=== PATIENT | male | born 1985 | race Caucasian/White ===

== ENCOUNTER → 2016-10-24 | Outpatient (CLI) | payer OTHER ==
--- NOTE | 2016-10-24 10:56 | NUR ---
Eval 2 Hr/Client presented for an eval as a referral from his dispatch officer.
--- NOTE | 2016-10-26 12:32 | CDE ---
ADMIT: 10/24/2016 RM/LOC: [facility] MR#: [id number] [address] [id number] DALIA ROSALES [address] [place] [address] Chemical Dependency Evaluation SEX: M AGE: 31 : 1985 A. DEMOGRAPHICS: NAME: Dalia Rosales DATE OF : 1985 EVALUATING COUNSELOR: Ike Styles MS, LMHP, LADC, CSAT DATE OF EVALUATION: 10/24/2016 B. PRESENTING PROBLEM/CHIEF COMPLAINT: This client is on parole as he was just released from [facility]. He had a couple of charges of intoxacation while he was in [facility] and a med abuse. He was referred here by his hydrological technical officer, Vibha Henderson. C. MEDICAL HISTORY: This client stated he has no medical issues at this time. 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 D. 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 He has been doing that for 3 weeks. He has no prior work history as he has spent the last 10 years in [facility]. EDUCATION: This client received his high school diploma from [employer]. He would like to learn to read and write better. : This client has never been in the . E. ALCOHOL/DRUG ASSESSMENT SUMMARY: ALCOHOL: This client first drank alcohol at age 19. He said he only drank 1 or 2 times. He would have 3-4 beers a month. He has not drank since 2006. He said the night he got arrested and received a manslaughter charge was he had drank a little bit more that night, but he did not know how much. MARIJUANA: Client stated he tried marijuana 1 time when he was 19, did not like it, has not used it since. COCAINE: No use reported. METHAMPHETAMINES: No use reported. HALLUCINOGENS: No use reported. HEROIN: No use reported. PRESCRIPTION DRUGS: No abuse reported. OTHER DRUGS (INHALANTS, OVER THE COUNTER, ETC): No abuse reported. NICOTINE: This client first smoked cigarettes at age 19. He said he smokes 2 or 3 cigarettes a day and has smoked today. The only negative consequences of his drinking are that he was charged for manslaughter and he ended up in [facility] because of that. He said if he had not been drinking, he did not know whether that would have happened or not. ADMIT: 10/24/2016 RM/LOC: [facility] MR#: [id number] [address] [address] DALIA ROSALES [address] [place] [address] Chemical Dependency Evaluation SEX: M AGE: 31 : 1985 F. LEGAL HISTORY: In 2006, this client was charged with manslaughter, spent 9-1/2 years in [facility]. He is currently involved with the parole system. G. FAMILY/SOCIAL/PEER HISTORY: This client was raised by his biological parents in [place]. He said he gets along good with his mom and his dad. He is still living at home. He has never been and is not in a relationship at this time. He denied having any serious family problems affecting his life at this time. SEXUAL HISTORY AND TRAUMA: This client stated he is heterosexual and he is comfortable with that orientation. He denied ever being the victim of sexual or physical abuse. He denied ever inflicting any aggressive sexual advances on others or inflicted any physical abuse on others. SOCIAL RELATIONSHIPS: This client prefers to hang around people who do not drink or do drugs and the majority of his friends do not. He does tend to hang out with people who are older than him, but he would rather hang out with people than by himself. He said he is ashamed of the crime he committed while he was drinking. RECREATIONAL AND LEISURE ACTIVITIES: This client enjoys working on cars and four wheeling. He denied ever drinking or smoking pot while doing either of those activities. He spends a typical day working and thinks he does get enough physical exercise. SPIRITUAL: This client does believe in God or a higher power, finds purpose and meaning in his life through God. He does belong to the [employer]. H. PSYCHIATRIC/BEHAVIORAL HISTORY: This client has never thought of suicide and has never attempted it, and he denied ever having any in or outpatient treatment for mental health or behavioral problems. I. COLLATERAL INFORMATION: This client's hydrological technical officer was talked to. She stated about the 2 times that he had dirty UA's while in [facility] which were in 2015 and 2011. His mom was also talked to. She stated that he has been doing well, working real hard since he has been out of [facility] and does not see any issues with him at this time. ADMIT: 10/24/2016 RM/LOC: [facility] MR#: [id number] [address] [place] [id number] DALIA ROSALES [address] [place] [address] Chemical Dependency Evaluation SEX: M AGE: 31 : 1985 THE DRINKER TYPE RATING: Is a measure of how the client perceives their own drinking and/or using. This rating is indicative of how resistant or accepting the person is to the drinking problem. The client chose their rating from the following classifications: ALCOHOL Total Abstainer Light Social (non-problem) Drinker Moderate Social (non-problem) Drinker User Heavy Social (non-problem)Drinker Problem Drinker Alcoholic OTHER DRUG Nonuser Light Social (non-problem) User Moderate Social (non-problem) User Heavy Social (non-problem) User Problem User Addicted/Dependent This client listed himself as a light social nonproblem drinker and a nonuser of other drugs. He listed his strengths that he is good at working on cars, welding, and being around people. Weaknesses are his reading and writing. SUBSTANCE ABUSE SUBTLE SCREENING INVENTORY (SASSI): The SASSI is an assessment tool specifically designed to provide a clearer picture of what lies beneath the facade presented by most patients or clients. Scores on this assessment aid in distinguishing nonabusers from abusers, alcoholics from drug abusers and nondefensive clients from defensive ones. The incorporation of a "denial scale" further enhances the ability to make an accurate recommendation. This client's SASSI scores according to the decision rule indicate that he has a low probability of having a substance dependence disorder and his scores are as follows: Face Valid Alcohol (FVA): 1. Face Valid Other Drugs (FVOD): 0. Symptoms (SYM): 1. Obvious Attributes (OAT): 6. Subtle Attributes (SAT): 4. Defensiveness (DEF): 4. Supplemental Addiction Measure (KIN): 6. Family versus Controls (FAM): 9. Correctional (COR): 4. Random Answering Pattern (RAP): 0. ADMIT: 10/24/2016 RM/LOC: [facility] MR#: [id number] [facility] [id number] DALIA ROSALES [address] [place] [address] Chemical Dependency Evaluation SEX: M AGE: 31 : 1985 Again, these scores indicate that he has a low probability of having a substance dependence disorder. We administered the ASI. Please see attached summary sheet. K. CLINICAL IMPRESSION: Plaza I: V71.09, no diagnosis. Plaza II: V71.09, no diagnosis. Plaza III: 799.9, deferred. Plaza IV: Primary support group. Economic problems. Social environment. Education problems. Legal system problems. Housing problems. Problems with access to health care. Plaza V: Global assessment of functioning 45. This client appeared to be very open throughout the interview process. Even though he did struggle having a hard time writing, he did a good job with his questionnaires. L. RECOMMENDATIONS PRESENTED TO CLIENT: This client was told that he could benefit from an outpatient counseling but he would not be able to do it here because I was unable to come up with a diagnosis. CLIENT/FAMILY RESPONSE: This client stated that he would be willing to do whatever he needed to do. [facility] CLINICAL ASSESSMENT CRITERIA: Low/Medium/High Dimension 1 = Intoxication and Withdrawal (i.e. history of withdrawal, level of current use): Low. Dimension 2 = Medical (i.e. , diabetes, medications, chronic conditions): Low. Dimension 3 = Emotional/Behavior Conditions (i.e. psych history, impulsivity, depression, anxiety, trauma history): Low. Dimension 4 = Treatment Acceptance/Resistance (i.e. past history, minimization/blame, acknowledgement of problem, pressure to seek treatment, does not feel they have a problem): Medium. Dimension 5 = Relapse Potential ADMIT: 10/24/2016 RM/LOC: [facility] MR#: [id number] [address] [place] [id number] DALIA ROSALES [address] [place] [address] Chemical Dependency Evaluation SEX: M AGE: 31 : 1985 (i.e. inability to abstain, use despite consequences, significant preoccupation, relapse despite outpatient treatment attempts): Low. Dimension 6 = Recovery/Living Environment (i.e. current users reside in environment, family attitude, lack of consistent adult support in living environment, high exposure to using in social/work environment): Low. CRIMINOGENIC RISK FACTORS: Low/Moderate/High Antisocial Attitudes: Low. Antisocial Peers: Low. Self Control Skills: Medium. Family Dysfunction: Low. Past Criminality: Medium. Thank you for the opportunity to work with this client. Ike Styles MS,MADELYN,MITESH, CSAT/ modl JOB #: [id number] CC:
== END | disposition home or self-care (01) ==
LOC: ADTC.GI 09-26 10:00
DX: Z03.89 Encounter for observation for other suspected diseases and conditions ruled out (principal)